=== PATIENT | male | born 1970 | race Caucasian/White ===

== ENCOUNTER 2017-01-19 10:18 | Emergency (ER) | payer MEDICAID ==
[~2017-01-19] VITALS: Ht 188 cm; Wt 50.3 kg
[2017-01-19] MEDS ORDERED: IV NS 0.9% 1,000 ML BAG IV ONE (11:00)
[2017-01-19 11:05] LABS: APPEARANCE,URINE Clear (CLEAR); BILIRUBIN,URINE Negative (NEGATIVE); BLOOD, URINE Trace-lysed Ery/uL (NEGATIVE); COLOR,URINE Yellow (YELLOW); KETONES,URINE Negative (NEGATIVE); LEUKOCYTE ESTERASE ,URINE Negative (NEGATIVE); NITRITE, URINE Negative (NEGATIVE); PROTEIN,URINE Trace mg/dl (NEGATIVE); UGLUCOSE Negative (NEGATIVE); UROBILINOGEN,URINE 0.2 EU/dL (0.2)
--- NOTE | 2017-01-19 11:05 | NUR ---
PT REFUSING IV START. AGITATED, COMPLAINING ABOUT NOISE IN THE ER. UNABLE TO COLLECT BLOOD. ERMD AWARE.
--- NOTE | 2017-01-19 11:06 | NUR ---
PT REFUSED IV AND BLOOD DRAW. MADE AWARE.
[2017-01-19 11:09] LABS: BACTERIA,URINE None seen /HPF (None Seen); SQUAMOUS EPITHELIAL CELL,UR Few /HPF (None Seen)
--- NOTE | 2017-01-19 11:27 | NUR ---
DR DUFFY AT BEDSIDE TALKING TO PT.
[2017-01-19 11:37] LABS: BASOPHILS # (AUTO) 0.1 /CMM (0.0-0.2); BASOPHILS % (AUTO) 2.8 % (0.0-2.0); EOSINOPHILS % (AUTO) 0.3 % (0.0-6.0); HEMATOCRIT 28 % (39-51); HEMOGLOBIN 9.2 g/dL (13.5-17.5); LYMPHOCYTES # (AUTO) 0.2 /CMM (0.8-4.8); LYMPHOCYTES % (AUTO) 4.8 % (20.0-44.0); MEAN CORPUSCULAR HEMOGLOBIN 28 PG (26.0-33.0); MEAN CORPUSCULAR HGB CONC 33 g/dl (31.0-36.0); MEAN CORPUSCULAR VOLUME 83 fL (80-96); MONOCYTES # (AUTO) 0.1 /CMM (0.1-1.30); MONOCYTES % (AUTO) 2.5 % (2.0-12.0); NEUTROPHILS # (AUTO) 3.3 /CMM (1.8-8.9); NEUTROPHILS % (AUTO) 89.6 % (43.0-81.0); PLATELET COUNT (AUTO) 169 /CMM (150-450); RED BLOOD CELL COUNT(AUTO) 3.34 MIL/uL (4.5-6.0); WHITE BLOOD COUNT (AUTO) 3.7 K/uL (4.3-11.0)
[2017-01-19] MEDS ORDERED: ALPRAZOLAM 0.5 MG TABLET ONE (11:39)
--- NOTE | 2017-01-19 11:45 | NUR ---
RADIOLOGY AT BEDSIDE FOR CHEST XRAY.
[2017-01-19 11:46] LABS: CALCIUM, SERUM 7.1 mg/dL (8.5-10.1); CREATININE 0.7 mg/dL (0.6-1.3); POTASSIUM 3.1 mmol/L (3.5-5.1)
[2017-01-19 11:51] LABS: ALBUMIN 1.7 g/dL (3.4-5.0); BILIRUBIN,DIRECT 0.1 mg/dL (0.0-0.2); BILIRUBIN,TOTAL 0.3 mg/dL (0.2-1.0); TOTAL PROTEIN, SERUM 5.8 g/dL (6.4-8.2)
[2017-01-19] MEDS ORDERED: ALPRAZOLAM 0.5 MG TABLET PO ONE (12:00)
[2017-01-19] MEDS ORDERED: POTASSIUM CHLORIDE 20 MEQ TAB.PRT.SR PO ONE ×2 (12:00→12:01)
[2017-01-19] MEDS ORDERED: LORAZEPAM 1 MG TABLET PO ONE (12:00)
--- NOTE | 2017-01-19 14:40 | NUR ---
Rosalba akers in ED - 01/19/17 at 1448 by MARCIA DeGrasse SALES REPRESENTATIVE PUBLIC UTILITIES at bedside.Patient discharged to home in stable condition. Written and verbal after care instructions given. Patient verbalizes understanding of instruction.
[2017-01-19 14:55] VITALS: BP 106/74
== END 2017-01-19 14:57 | disposition home or self-care (01) ==
LOC: ER 10:20
DX: E86.0 Dehydration (principal); R19.7 Diarrhea, unspecified; E87.6 Hypokalemia; K52.9 Noninfective gastroenteritis and colitis, unspecified; D64.9 Anemia, unspecified; F17.200 Nicotine dependence, unspecified, uncomplicated; G89.29 Other chronic pain; Z85.038 Personal history of other malignant neoplasm of large intestine; Z98.890 Other specified postprocedural states
CPT/HCPCS: 36415; 71010; 80048; 80076; 81001; 83605; 83690; 85025; 99285; A4606; Z7610; 81000-TC; J7030

== ENCOUNTER 2017-01-19 20:04 | Inpatient (IN) | payer MEDICAID ==
[~2017-01-19] VITALS: Ht 188 cm; Wt 54.6 kg
--- NOTE | 2017-01-19 20:30 | NUR ---
PT A/OX4 BREATHING EFFORTLESSLY ON ROOM AIR, PT STATES HE FELL YESTERDAY AND HIT HIS HEAD ON CONCRETE, BUT DENIES LOC, PT STATES HE WAS HERE EARLIER TODAY FOR SAME PROBLEM AND HE CAME BACK BECAUSE HE IS NOT FEELING ANY BETTER, PT ON MONITOR, IN GOWN, WARM BLANKET GIVEN TO PT, VSS, BOREMATIC OPERATOR AT BEDSIDE WILL CONTINUE TO MONITOR.
[2017-01-19] MEDS ORDERED: IV NS 0.9% 1,000 ML BAG IV ONE (21:00)
--- NOTE | 2017-01-19 21:42 | NUR ---
LAB IN ROOM DRAWING AT THIS TIME
--- NOTE | 2017-01-19 22:20 | NUR ---
N NOTES ADMITTED A 46 YEARS OLD MALE PT FROM ER WITH PRIMARY DIAGNOSIS OF ACUTE DEHYDRATION AND WEAKNESS. PT IS ALERT AND ORIENTED X3, DENIES PAIN, NAUSEA AND VOMITING AT THIS TIME. NO SOB, NOT IN DISTRESS, ON ROOM AIR WITH GOOD SATURATION. UNABLE TO DO SKIN AND BODY ASSESSMENT AT THIS TIME, PT DOESN'T WANT TO BE TOUCH, AFTER 20 MIN HE SAID. IV ACCESS ON LEFT FORE ARM PATENT AND INTACT. KEPT COMFORTABLE AND WARM REQUESTED. ALL ORDERS NOTED AND CARRIED OUT. WILL CONTINUE TO MONITOR PT.
--- NOTE | 2017-01-19 22:20 | NUR ---
RN NOTES ADMITTED A 46 YEARS OLD MALE PT FROM ER WITH PRIMARY DIAGNOSIS OF ACUTE DEHYDRATION AND WEAKNESS. PT IS ALERT AND ORIENTED X3, DENIES PAIN, NAUSEA AND VOMITING AT THIS TIME. NO SOB, NOT IN DISTRESS, ON ROOM AIR WITH GOOD SATURATION. UNABLE TO DO SKIN AND BODY ASSESSMENT AT THIS TIME, PT DOESN'T WANT TO BE TOUCH, AFTER 20 MIN HE SAID. KEPT PT COMFORTABLE AND WARM REQUESTED. IV ACCESS ON LEFT FORW ARM PATENT AND INTACT.
[2017-01-19] MEDS ORDERED: POTASSIUM CHLORIDE 20 MEQ TAB.PRT.SR PO ONE ×2 (22:27→22:30)
[2017-01-19 23:00] VITALS: BP 123/77
[2017-01-19] MEDS ORDERED: ACETAMINOPHEN 325 MG TABLET PO PRN (23:00)
[2017-01-19] MEDS ORDERED: Z GUARD REMEDY 2 OZ OINT TP PRN (23:00)
[2017-01-19] MEDS ORDERED: ONDANSETRON HCL/PF 4 MG/2 ML VIAL IVP PRN (23:00)
[2017-01-19] MEDS ORDERED: ZOLPIDEM TARTRATE 5 MG TABLET PO PRN (23:00)
[2017-01-19] MEDS ORDERED: MAGNESIUM HYDROXIDE 30 ML UDC PO PRN (23:00)
--- NOTE | 2017-01-19 23:00 | NUR ---
RN NOTES CAME BACK TO THE PT IF ITS OK TO DO SKIN AND BODY ASSESSMENT, PICHARDO SAID TO GIVE HIM ANOTHER 20 MIN. AND HE WILL EAT FIRST. HE SAID TO ASK DARBY TO EMAIL THE PICTURES OF HIS SKIN CONDITION. AND PT ALSO REFUSED TO CHANGE HIS WET GOWN. WILL TRY AGAIN LATER.
[2017-01-19] MEDS: IV NS 0.9% 1,000 ML IV PRN (23:06)
[2017-01-19 23:18] LABS: BASOPHILS # (AUTO) 0.1 /CMM (0.0-0.2); BASOPHILS % (AUTO) 1.3 % (0.0-2.0); HEMATOCRIT 30 % (39-51); LYMPHOCYTES # (AUTO) 0.1 /CMM (0.8-4.8); LYMPHOCYTES % (AUTO) 2.3 % (20.0-44.0); MEAN CORPUSCULAR HEMOGLOBIN 27 PG (26.0-33.0); MEAN CORPUSCULAR HGB CONC 33 g/dl (31.0-36.0); MEAN CORPUSCULAR VOLUME 83 fL (80-96); MONOCYTES # (AUTO) 0.1 /CMM (0.1-1.30); MONOCYTES % (AUTO) 1.2 % (2.0-12.0); NEUTROPHILS # (AUTO) 4.5 /CMM (1.8-8.9); NEUTROPHILS % (AUTO) 95.2 % (43.0-81.0); PLATELET COUNT (AUTO) 169 /CMM (150-450); RDW COEFFICIENT OF VARIATION 19.7 (11.5-15.0); RED BLOOD CELL COUNT(AUTO) 3.66 MIL/uL (4.5-6.0); WHITE BLOOD COUNT (AUTO) 4.7 K/uL (4.3-11.0)
[2017-01-19 23:28] LABS: CREATININE 0.6 mg/dL (0.6-1.3); POTASSIUM 3.3 mmol/L (3.5-5.1)
[2017-01-20 00:35] LABS: BAND % (MANUAL) 13 % (0.0-5.0); LYMPHOCYTES % (MANUAL) 1 % (16-48); MONOCYTES % (MANUAL) 4 % (0-11.0); NEUTROPHILS % (MANUAL) 82 (42-76)
--- NOTE | 2017-01-20 03:30 | NUR ---
RN NOTES PT HAD EPISODE OF [facility]ATERY STOOL, CLEANED THE PT BY 3 NURSES BECAUSE HE'S NOT BEING COOPERATIVE. PICTURE OF SACRAL AREA TAKEN AND FILED IN THE CHART. KEPT PT CLEAN AND DRY.
[2017-01-20] MEDS ORDERED: MORPHINE SULFATE INJ 2 MG/ML DISP.SYRIN ONE (04:40)
[2017-01-20] MEDS: MORPHINE SULFATE INJ 2 MG/ML DISP.SYRIN IV PRN ×3 (06:02→17:46)
--- NOTE | 2017-01-20 06:02 | NUR ---
RN NOTES PT COMPLAINS OF GENERALIZED BODY PAIN 01/07, MORPHINE SULPHATE 2 MG GIVEN IV. WILL CONTINUE TO MONITOR PT.
[2017-01-20 07:44] LABS: EOSINOPHILS % (AUTO) 0.1 % (0.0-6.0); HEMATOCRIT 27 % (39-51); LYMPHOCYTES # (AUTO) 0.2 /CMM (0.8-4.8); LYMPHOCYTES % (AUTO) 6.2 % (20.0-44.0); MEAN CORPUSCULAR HEMOGLOBIN 28 PG (26.0-33.0); MEAN CORPUSCULAR HGB CONC 33 g/dl (31.0-36.0); MEAN CORPUSCULAR VOLUME 84 fL (80-96); MONOCYTES # (AUTO) 0.1 /CMM (0.1-1.30); MONOCYTES % (AUTO) 3.2 % (2.0-12.0); NEUTROPHILS # (AUTO) 2.9 /CMM (1.8-8.9); NEUTROPHILS % (AUTO) 90.5 % (43.0-81.0); PLATELET COUNT (AUTO) 136 /CMM (150-450); RDW COEFFICIENT OF VARIATION 19.9 (11.5-15.0); RED BLOOD CELL COUNT(AUTO) 3.25 MIL/uL (4.5-6.0); WHITE BLOOD COUNT (AUTO) 3.2 K/uL (4.3-11.0)
[2017-01-20 07:52] LABS: CALCIUM, SERUM 7.1 mg/dL (8.5-10.1); CREATININE 0.6 mg/dL (0.6-1.3); MAGNESIUM 1.8 mg/dL (1.8-2.4); PHOSPHORUS 1.7 mg/dL (2.5-4.9); POTASSIUM 3.4 mmol/L (3.5-5.1)
[2017-01-20 08:00] VITALS: BP 99/59
--- NOTE | 2017-01-20 08:00 | NUR ---
MS RN NOTES PATIENT IN BED SLEEPING, NO SOB OR ACUTE DISTRESS NOTED. PERIPHERAL IV ON LEFT FOREARM INTACT PATENT. PATIENT DOES NOT WANT TO BE DISTURBED. BED IN LOW LOCKED POSITION. CALL LIGHT WITHIN REACH. WILL CONTINUE TO MONITOR.
[2017-01-20 08:22] LABS: BAND % (MANUAL) 7 % (0.0-5.0); EOSINOPHILS % (MANUAL) 3 % (0-4); LYMPHOCYTES % (MANUAL) 2 % (16-48); MONOCYTES % (MANUAL) 3 % (0-11.0); NEUTROPHILS % (MANUAL) 85 (42-76)
[2017-01-20] MEDS: PANTOPRAZOLE 40 MG TABLET.DR PO SCH (08:36)
[2017-01-20] MEDS: NICOTINE PATCH (21MG) 21 MG PATCH.TD24 TD SCH (08:39)
[2017-01-20] MEDS: HYDROCODONE/APAP 5/325MG 1 EACH TABLET PO PRN ×3 (08:45→21:00)
[2017-01-20] MEDS ORDERED: POTASSIUM CHLORIDE 20 MEQ TAB.PRT.SR PO SCH (11:00)
--- NOTE | 2017-01-20 11:12 | NUR ---
Social service consult requested by Dr. Brandon for placement and hospice evaluation. Pt. is a 46 year old male with HIV/AIDS diagnosis who was admitted to [facility] for generalized weakness and anemia. SW and rn case management Mainor met with pt. bedside. Pt. is alert and oriented x 4. Pt. appeared underweight and had a hostile attitude towards SW and rn case management. Pt. stated he has been homeless for a week. Pt. was living with his , but soon to be ex- prior to being homeless. Pt. states he has been living in his car which is currently parked on [address] in [place]. Pt. has a HIV primary care physician Dr. Riggs at a clinic in [place]. Pt. was unable to provide contact number for Dr. Riggs. Pt. is requesting a taxi voucher to go to his car once medically cleared for discharge. Per SALENA Francis, pt. is not cooperative with his plan of care. Pt. declined hospice evaluation and wants aggressive treatment. SW was about to offer pt. homless resources, however, pt. got upset and told SW and rn case management to leave his room. SW to offer pt. homeless resources prior to discharge.
[2017-01-20] MEDS ORDERED: IPRATROPIUM BROMIDE 14 GM INHALER (or 12.9 GM) IH PRN (11:30)
[2017-01-20] MEDS ORDERED: SILVER SULFADIAZINE CREAM 25 GM TUBE TP PRN (11:30)
--- NOTE | 2017-01-20 12:00 | NUR ---
MS RN NOTES PATIENT NONE COMPLIANT REFUSED BODY ASSESSMENT. NOTED THROWING HIS MILK AND PITCHER WITH WATER ON THE FLOOR.
--- NOTE | 2017-01-20 13:30 | NUR ---
WOUND CARE CONSULT: PT AGITATED AND THROWING LINENS ON THE FLOOR. WILL SEE PT FOR SKIN ASSESSMENT PT CONDITION PERMITS.
[2017-01-20] MEDS: IPRATROPIUM NEB FS 0.5 MG/2.5 ML AMPUL.NEB NEB PRN ×2 (13:47→16:53)
[2017-01-20] MEDS: MAG HYDROX/AL HYDROX/SIMETH 30 ML UDC PO PRN ×2 (15:02→21:02)
[2017-01-20 16:00] VITALS: BP 121/58
[2017-01-20] MEDS ORDERED: K PHOS NEUTRAL 250 MG TABLET PO ONE (16:30)
--- NOTE | 2017-01-20 19:30 | NUR ---
MS RN OPENING NOTES: PATIENT IN BED, AOX4, ON ROOM AIR, BREATHING EVEN AND UNLABORED. PIV OVER LFA G20 INTACT AND PATENT TO FLUSH. PT COMPLAINS OF PAIN 8/10 OVER HIS ABDOMEN, WAS NOT ABLE TO LOCALIZE SPECIFIC PART OF WHICH IS IN PAIN, BUT INSTEAD WAS POINTING TO HIS WHOLE ABDOMEN. PATIENT STATES THAT HE ALSO WANTS A HOT SHOWER, BED BATH OFFERED, BUT HE SAID THAT HE WANTS A "REAL, HOT SHOWER". PATIENT IS ASKING FOR PAIN MEDICATION AND ANXIETY MEDICATION. EXPLAINED PAIN MEDICATION SCHEDULE, PROVIDED FOR COMFORT AND SAFETY. BED IN LOWEST NAD LOCKED POSITION, SIDERAILS UP X3. WILL CONT TO MONITOR.
[2017-01-20 20:00] VITALS: BP 95/70
--- NOTE | 2017-01-20 20:01 | NUR ---
MS RN NOTES PATIENT IN BED SLEEPING, ALL DUE MEDICATIONS ADMINISTERED. ALL NEEDS MET WILL ENDORSE TO PM SHIFT TOYIN.
--- NOTE | 2017-01-20 20:45 | NUR ---
RN NOTES: PATIENT WAS YELLING "NURSE!" FROM HIS BED, AND WHEN ASKED WHAT HE NEEDED, HE WAS ASKING FOR HIS "PAIN PILL", AND ANXIETY MEDICATION, AND STARTED COMPLAINING ABOUT NOT GETTING HIS SHOWER AND OTHER DEMANDS SUCH WATER, JUICE AND FOOD. PATIENT WAS ALSO COMPLAINING THAT HE WAS NOT GETTING HIS OTHER MEDICATIONS LIKE POTASSIUM, STATING "YOU SHOULD HAVE A LIST, WHY ARE YOU NOT GIVING THEM TO ME". EXPLAINED SCHEDULE OF MEDICATIONS AT THIS TIME, WHILE MIGUEL ÁNGEL HARRIS GAVE HIM WATER AND JUICE ETC. PATIENT WAS ALSO COMPLAINING THAT HE WAS CALLING FOR AN HOUR, SO STEVEN DEL ROSARIO THEN EXPLAINED TO PATIENT THAT IT IS BEST FOR HIM TO USE THE CALL LIGHT, WHICH IS CURRENTLY WITHIN PATIENT'S EASY REACH. PER PT, IT WAS NOT WORKING, BUT WHEN STEVEN DEL ROSARIO PRESSED IT, THE CALL LIGHT IN FRONT OF THE ROOM LIT UP. STEVEN DEL ROSARIO THEN SAID THAT THE CALL LIGHT WORKS. PATIENT THEN GOT ANGRY, SAYING THAT "I DO NOT APPRECIATE BEING CALLED A LIAR, " AND THEN TOLD RN THAT HE DOES NOT WANT TO HAVE STEVEN HIS OIL EXTRACTOR. CHARGE NURSE MADE AWARE, NEW OIL EXTRACTOR ASSIGNED. PROVIDED FOR COMFORT.
--- NOTE | 2017-01-20 21:00 | NUR ---
RN NOTES: ADMINISTERED NORCO 5-325 MG PO PRN FOR 7/10 ABDOMINAL PAIN. EXPLAINED TO PATIENT THAT SINCE NORCO IS A NARCOTIC, HE SHOULD STAY IN BED FOR AT LEAST AN HOUR AFTER GIVING IT. PATIENT STILL PUSHING FOR A SHOWER. CONT TO MONITOR CLOSELY FOR SAFETY.
[2017-01-21] MEDS: MORPHINE SULFATE INJ 2 MG/ML DISP.SYRIN IV PRN ×2 (00:41→04:41)
--- NOTE | 2017-01-21 00:41 | NUR ---
RN NOTES: PATIENT COMPLAINED OF PAIN 9/10, OVER ABDOMEN AND WAS ASKING FOR PAIN MEDICATION. BP CHECKED AT 119/75, HR: 70. ADMINISTERED MORPHINE 2 MG IV. PROVIDED FOR COMFORT. PATIENT HAS JUST BEEN ASSISTED TO SHOWER, AND LIGHT SNACKS WERE PROVIDED, LINEN WERE CHANGED AND WARM BLANKETS WERE GIVEN.
[2017-01-21] MEDS: LORAZEPAM INJ 2 MG/ML VIAL IV PRN ×2 (02:55→10:46)
[2017-01-21] MEDS: IV NS 0.9% 1,000 ML IV PRN (03:03)
--- NOTE | 2017-01-21 03:06 | NUR ---
RN NOTES: PATIENT STATES THAT HE IS FEELING ANXIOUS AND CANNOT SLEEP AND IS ASKING FOR HIS ANXIETY MEDICATION. ADMINISTERED ATIVAN 0.5 MG IV. WILL CONT TO MONITOR.
--- NOTE | 2017-01-21 07:00 | NUR ---
RN NOTES: PATIENT COMPLAINED OF PAIN OVER ABDOMEN SCALED AT 7/10, ADMINISTERED NORCO 5-325 MG PO. PATIENT STATED THAT HE WANTS TO HAVE DME'S OF A CANE AND A WALKER BEFORE HE GETS DISCHARGED.
[2017-01-21] MEDS: HYDROCODONE/APAP 5/325MG 1 EACH TABLET PO PRN (07:13)
[2017-01-21] MEDS: MAG HYDROX/AL HYDROX/SIMETH 30 ML UDC PO PRN (07:13)
--- NOTE | 2017-01-21 07:15 | NUR ---
RN NOTES PT IS IN BED, AWAKE, RESTING COMFORTABLY. PT ON ROOM AIR, NO SOB OR SIGNS OF DISTRESS. IV ON LFA RUNNING NS AT 75 ML/HR. SAFETY MEASURES ARE IN PLACE, CALL LIGHT IS IN REACH. WILL CONTINUE TO MONITOR.
--- NOTE | 2017-01-21 07:31 | NUR ---
MS RN CLOSING NOTES: PATIENT IN BED, AOX4, ON ROOM AIR, BREATHING EVEN AND UNLABORED. PIV OVER LFA G 20 INTACT NAD PATENT, INFUSING WELL WITH NS RUNNING AT 75 ML/HR. APPEARS CALM AND IN NO DISTRESS, STILL COMPLAINING OF INTERMITTENT AND GENERALIZED PAIN OVER ABDOMEN. DUE MEDS GIVEN. PROVIDED FOR COMFORT AND SAFETY. WILL ENDORSE TO AM RN FOR TOYIN,
[2017-01-21 08:00] VITALS: BP 114/83
[2017-01-21] MEDS: PANTOPRAZOLE 40 MG TABLET.DR PO SCH (08:05)
[2017-01-21] MEDS: NICOTINE PATCH (21MG) 21 MG PATCH.TD24 TD SCH (08:06)
[2017-01-21] MEDS ORDERED: POTASSIUM CHLORIDE 20 MEQ TAB.PRT.SR PO ONE (11:00)
--- NOTE | 2017-01-21 12:30 | NUR ---
KARLEY and employment evaluator/case manager met with pt. to discuss discharge plan. Pt. states he wants to go to a residential, however employment evaluator/case manager Mainor informed pt. that he does not have any skilled needs to go to a SNF. Pt. understood. Pt. wants to be discharged to his car located at [facility]. Pt. requested for a gas voucher, however, hospital does not carry any gas vouchers and informed pt. Hospital to provide pt. with taxi transportation. The following resources were given to pt's NILSA Stewart to give to pt: list of HIV/AIDS F community clinics in [place] which include [facility] center located at [address] , [facility] located at [address]. [place] ; [facility] which include [facility] which include [facility] located at [address]. [place] [address] ; List of Food Slater in [facility] and List of Homeless Shelters, [employer] and Homeless Resource Directory. SW offered pt. homeless nursing home placement, however pt. declined. Homeless Patient Waiver Form was given to NILSA Stewart to give to pt. to sign upon discharge. technical sales manager Mainor to assist with taxi transportation.
--- NOTE | 2017-01-21 14:42 | NUR ---
PT WAS DISCHARGED WITH TAXI TOUCHER AND WALKER. IV AND ID BAND WERE REMOVED. DISCHARGE PAPERS, BELONGINGS LIST, AND HOMELESS WAIVER WERE ALL SIGNED. DISCHARGE EDUCATION WAS GIVEN, PT STATED HE WOULD MAKE HIS OWN APPOINTMENT TO FOLLOW UP WITH HIS PRIMARY CARE PHYSICIAN. PT REFUSED TO HAVE WOUND PICTURES TAKEN.
== END 2017-01-21 14:40 | disposition home or self-care (01) | DRG 892 ==
LOC: ER 20:04 → MED 22:07
PROVIDERS: ADMIT Internal Medicine; ATTEND Internal Medicine
DX: B20 Human immunodeficiency virus [HIV] disease (principal); B25.8 Other cytomegaloviral diseases; E43 Unspecified severe protein-calorie malnutrition; A08.39 Other viral enteritis; E87.1 Hypo-osmolality and hyponatremia; C20 Malignant neoplasm of rectum; E86.0 Dehydration; E87.6 Hypokalemia; F17.200 Nicotine dependence, unspecified, uncomplicated; Z66 Do not resuscitate; Z59.0 Homelessness; K21.9 Gastro-esophageal reflux disease without esophagitis; D63.8 Anemia in other chronic diseases classified elsewhere; G89.29 Other chronic pain; W19.XXXA Unspecified fall, initial encounter; Y93.9 Activity, unspecified; Y92.9 Unspecified place or not applicable
CPT/HCPCS: 36415; 80048-TC; 83735-TC; 84100-TC; 85025-TC; 87081-TC; A4606; J2060; J2270; J7030; Z7610